=== PATIENT | male | born 1985 | race Caucasian/White ===

== ENCOUNTER 2020-07-29 22:53 | Emergency (ER) | payer OTHER, SELFPAY ==
[2020-07-29 23:19] VITALS: BP 133/86; PULSE 97; RESP 18; TEMP 36.3; O2SAT 96
--- NOTE | 2020-07-29 23:30 | XR_ITS ---
EXAMINATION: XR KNEE, RIGHT CLINICAL INFORMATION: Pain. COMPARISON: None TECHNIQUE: Four views of the right knee. FINDINGS: There is no fracture. No dislocation. There is intra-articular calcified loose body in the suprapatellar fossa measuring approximately 2.5 x 1 x 1.5 cm in size. There is mild joint narrowing of the medial and lateral femoral tibial joint without significant spur. No bone erosions. XR/XR knee RT 4V IMPRESSION: 1. No acute osseous abnormality. 2. Intra-articular loose body. 3. 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
--- NOTE | 2020-07-29 23:50 | ED_ITS ---
HPI - Extremity Injury (Lower) General Chief Complaint: Extremity Injury, Lower Stated Complaint: Knee pain/Inj Time Seen by Provider: 07/29/20 23:23 Source: patient Mode of arrival: wheelchair Limitations: no limitations History of Present Illness HPI Narrative: Patient comes in complaining of right-sided knee pain. Patient states he was at work, did not fall, states he moved his leg a certain way and heard a pop while he was standing up and reaching with his hands down words. Since then he has been complaining right-sided knee pain, worse in the posterior aspect. Patient unable to bear weight due to the pain. MD complaint: knee injury Related Data Previous Rx's Medication Instructions Recorded acetaminophen [Tylenol Arthritis 650 mg PO Q8H PRN #14 tab 07/30/20 Pain] ibuprofen 600 mg PO Q8H PRN #14 tab 07/30/20 Allergies Allergy/AdvReac Type Severity Reaction Status Date / Time No Known Allergies Allergy Verified 07/29/20 23:30 Review of Systems Review of Systems: Constitutional : No Weight loss, No Fever, No Chills, No Night Sweats, No Fatigue, No Malaise ENT/Mouth : No Hearing loss, No Ear Pain, No Nasal Congestion, No Sinus Pain, No Hoarseness, No sore throat, No Rhinorrhea, No Swallowing Difficulty Eyes: No Eye Pain, No Swelling, No Redness, No Foreign Body, No Discharge, No Vision Changes Cardiovascular : No Chest Pain, No SOB, No Dyspnea on Exertion, No Orthopnea, No Edema, No Palpitations Respiratory : No Cough, No Sputum, No Wheezing, No Smoke Exposure, No Dyspnea Gastrointestinal : No Nausea, No Vomiting, No Diarrhea, No Constipation, No abdominal Pain, No Hematochezia, No Melena Genitourinary : no irregular bleeding, No Dysuria, No Urinary Frequency, No Hematuria, No Urinary Incontinence, No Urgency, No Flank Pain, No Urinary Flow Changes, No Hesitancy Musculoskeletal : Patient complaining of right-sided knee pain Skin : No Skin Lesions, No rash Neuro : No Weakness, No Numbness, No Paresthesias, No Loss of Consciousness, No Dizziness, No Headache Psych : No Anxiety/Panic, No Depression, No SI/HI/AH/VH, No Social Issues, Heme/Lymph: No Bruising, No Bleeding,No Lymphadenopathy Endocrine : No Polyuria, No Polydipsia, No Temperature Intolerance PMFSH Past Medical History Medical History (Updated 07/30/20 @ 00:21 by Yusra Lagunas MD) Appendicitis Social History Social History Advance Directives: No Physical Exam 2 Vital Signs: Vital Signs: Last Vital Signs Temp 97.3 F 07/29/20 23:57 Pulse 97 07/29/20 23:57 Resp 18 07/29/20 23:57 BP 133/86 07/29/20 23:57 Pulse Ox 96 07/29/20 23:57 Body Mass Index 115.1 Appearance: Alert. Oriented X3. No acute distress. Eyes: Pupils equal, round and reactive to light. ENT: Pharynx normal. Neck: Normal inspection. Neck supple. No lymph nodes noted. No crepitus CVS: Normal heart rate and rhythm. Pulses normal. Normal S1 and S2 Respiratory: No respiratory distress. Breath sounds normal. No Wheezing. No rales Abdomen: Soft and nontender. No rigidity. No distention. good BS x4 Skin: Skin warm and dry. Normal skin color. Normal skin turgor. Extremities: No lower extremity edema. Patient does not have a knee effusion, patient had a positive valgus stress test, negative varus, negative anterior posterior drawer, neg [place] test Neuro: Oriented X 3. No motor deficit. No sensory deficit. Moving all extermities. No slurred speech. Course Course Course Narrative: Patient's x-rays were negative for bony injury. I discussed the physical exam with the patient, it is possible that the patient might have torn his MCL, possibly the meniscus as well. Patient will likely need an MRI and depending on the results he may need physical therapy versus surgery. Patient will follow-up with Work connections in the morning. Patient is unable to bear weight, patient's knee was Terry wrapped and provided with crutches. MDM - Extremity Injury (Lower) Imaging Data Knee x-ray: Radiologist's impression: FINDINGS: There is no fracture. No dislocation. There is intra-articular calcified loose body in the suprapatellar fossa measuring approximately 2.5 x 1 x 1.5 cm in size. There is mild joint narrowing of the medial and lateral femoral tibial joint without significant spur. No bone erosions. XR/XR knee RT 4V IMPRESSION: 1. No acute osseous abnormality. 2. Intra-articular loose body. 3. 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 Discharge Plan Discharge Clinical Impression: Injury of knee, ligament Qualifiers: Encounter type: initial encounter Laterality: right Qualified Code(s): S89.91XA - Unspecified injury of right lower leg, initial encounter Patient Disposition: Home, Self-Care Instructions: Knee Sprain (ED) Additional Instructions: Please follow-up with work connections in the morning. Please make sure you ice your knee for 15 minutes every 2 hours while you are awake. Please follow-up with your primary care physician tomorrow. If you have any worsening or new symptoms, please return to the emergency room or call 911 Prescriptions: New ibuprofen 600 mg tablet 600 mg PO Q8H PRN (Reason: pain) Qty: 14 RF: 0 acetaminophen [Tylenol Arthritis Pain] 650 mg tablet extended release 650 mg PO Q8H PRN (Reason: pain) Qty: 14 RF: 0 Stand Alone Forms: Work/School Release
[2020-07-29 23:57] VITALS: BP 133/86; PULSE 97; RESP 18; TEMP 36.3; O2SAT 96; BMI 115.1
[2020-07-30] MEDS: Acetaminophen 325 MG TABLET 650 MG PO (00:09)
--- NOTE | 2020-07-30 00:29 | PC.NURSE ---
PATIENT TRAINED ON PROPER USE OF CRUTCHES AND APPLIED DREW WRAP TO R KNEE.
== END 2020-07-30 00:45 | disposition home or self-care (01) ==
PROVIDERS: Emergency Provider Emergency Medicine; PCP Internal Medicine
DX: S89.91XA Unspecified injury of right lower leg, initial encounter (principal); X58.XXXA Exposure to other specified factors, initial encounter; Y93.89 Activity, other specified; Y92.9 Unspecified place or not applicable; Y99.0 Civilian activity done for income or pay
CPT/HCPCS: 73564; 99283; 99284

== ENCOUNTER → 2020-07-30 11:25 | Outpatient (BNVA) | payer OTHER, SELFPAY | PROVIDERS: PCP Internal Medicine; Visit Provider Physician Assistant Medical | DX: M23.41 Loose body in knee, right knee (principal) | CPT/HCPCS: 99203 ==

== ENCOUNTER → 2020-08-06 12:51 | Outpatient (BNVA) | payer OTHER, SELFPAY | PROVIDERS: PCP Internal Medicine; Visit Provider Internal Medicine | DX: M23.91 Unspecified internal derangement of right knee (principal) | CPT/HCPCS: 99213 ==

== ENCOUNTER → 2020-08-14 13:11 | Outpatient (BNVA) | payer OTHER, SELFPAY | PROVIDERS: PCP Internal Medicine; Visit Provider Internal Medicine | DX: M23.41 Loose body in knee, right knee (principal) | CPT/HCPCS: 99213 ==

== ENCOUNTER → 2020-08-30 13:05 | Outpatient (BNVA) | payer OTHER, SELFPAY | PROVIDERS: PCP Internal Medicine; Visit Provider Internal Medicine | DX: S82.209D Unspecified fracture of shaft of unspecified tibia, subsequent encounter for closed fracture with routine healing (principal); X58.XXXD Exposure to other specified factors, subsequent encounter; M24.08 Loose body, other site | CPT/HCPCS: 99213 ==

== ENCOUNTER → 2022-12-30 09:24 | Outpatient (BNVA) | payer OTHER, SELFPAY | PROVIDERS: PCP Internal Medicine; Visit Provider Physician Assistant Medical | DX: I25.10 Atherosclerotic heart disease of native coronary artery without angina pectoris (principal); I10 Essential (primary) hypertension | CPT/HCPCS: 99203 ==

== ENCOUNTER → 2023-01-18 10:29 | Outpatient (BNVA) | payer OTHER, SELFPAY | PROVIDERS: PCP Internal Medicine; Visit Provider Internal Medicine | DX: I25.10 Atherosclerotic heart disease of native coronary artery without angina pectoris (principal); I10 Essential (primary) hypertension | CPT/HCPCS: 99214 ==

== ENCOUNTER → 2023-01-22 12:02 | Outpatient (BNVA) | payer OTHER, SELFPAY | PROVIDERS: PCP Internal Medicine; Visit Provider Internal Medicine | DX: R07.9 Chest pain, unspecified (principal) | CPT/HCPCS: 99214 ==